=== PATIENT | male | born 1965 | race Caucasian/White ===

== ENCOUNTER → 2023-01-26 13:07 | Outpatient (BNVA) | payer OTHER, SELFPAY | PROVIDERS: PCP Physician Assistant; Visit Provider Urology | DX: R97.20 Elevated prostate specific antigen [PSA] (principal); F17.200 Nicotine dependence, unspecified, uncomplicated | CPT/HCPCS: 51798 ==

== ENCOUNTER 2023-08-04 08:40 | Emergency (ER) | payer OTHER, SELFPAY ==
--- NOTE | ~2023-08-04 | XR_ITS ---
EXAMINATION: XR LUMBOSACRAL SPINE CLINICAL INFORMATION: Low back pain COMPARISON: None available. TECHNIQUE: Three views of the lumbosacral spine. FINDINGS: There is minor spondylitic change in the mid lumbar spine but no acute fracture or destructive process. Alignment is preserved. The SI joints appear symmetric. XR/XR lumbar spine 2-3V IMPRESSION: Degenerative change noted but no acute findings.
[2023-08-04 08:44] VITALS: BP 143/101; PULSE 90; RESP 18; TEMP 36.6; O2SAT 98; BMI 26.5
--- NOTE | 2023-08-04 08:55 | PC.NURSE ---
patient a&ox3, pt c/o 8-10 on pain depending on the moment, pt states if he is just sitting relaxing its low on the pain scale but any movement it increases, pt denies injury but states he recently was shoveling concrete and also doing fall cleanup at his home. Pt awaiting provider will continue to monitor.
--- NOTE | 2023-08-04 09:04 | ED_ITS ---
HPI - Back Pain/Injury General Chief Complaint: Back Pain/Injury Stated Complaint: Lower Back Pain S/P Injury 1 Wk Ago Time Seen by Provider: 08/04/23 09:02 Source: patient and family () Mode of arrival: ambulatory Limitations: no limitations History of Present Illness HPI Narrative: Patient is a 50-year-old male presenting to the emergency department with midline lower back pain for the past week. States that he has been doing a good deal of yard work outdoors as well as shoveling concrete. Denies recent falls or other trauma. States pain radiates down both legs. Denies fevers, saddle anesthesia, bowel or bladder incontinence. Denies dysuria, frequency, any other urinary symptoms. Has used Aleve intermittently with little relief. MD elicited complaint: back pain Onset (ago): week(s) Timing: constant Severity: severe Quality: aching Location: lumbar spine and sacrum Radiation: left upper leg and right upper leg Exacerbating factors: movement Relieving factors: sitting upright Context: while lifting and turning/twisting Associated symptoms: denies other symptoms Treatments prior to arrival: NSAIDS Work related injury: No Related Data Home Medications Medication Instructions Recorded Confirmed bupropion HCl 300 mg 24 hr tablet, 300 mg PO DAILY 01/26/23 01/26/23 extended release Previous Rx's Medication Instructions Recorded cyclobenzaprine 5 mg tablet 5 mg PO TID PRN muscle spasm #12 08/04/23 tabs lidocaine 5 % topical patch 1 patch topical DAILY #15 ea 08/04/23 Allergies Allergy/AdvReac Type Severity Reaction Status Date / Time No Known Allergies Allergy Verified 01/26/23 13:10 Review of Systems Review of Systems: As per HPI. 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 Blood pressure elevated. Heart rate normal. Respiratory rate normal. Temperature normal. Oxygen saturation normal. Const: General: cooperative, healthy appearing and no acute distress Orientation/consciousness: oriented to person, oriented to place, oriented to time and patient oriented x3 Limitations: no limitations HEENT: Head: Yes normocephalic and Yes atraumatic Ears: external ears normal General nose exam: Normal external nose present Face and sinus: Yes face symmetric Mouth: oropharynx normal and moist mucous membranes Throat: Yes uvula midline Eyes: Pupils: Equal, round and reactive pupils present Neck: Neck: Yes normal visual inspection and Yes supple Resp: Effort & Inspection: normal respiratory effort and able to speak in complete sentences Auscultation: clear to auscultation bilaterally Cardio: Rate: regular rate Rhythm: regular rhythm Heart sounds: S1 charbel l heart sound present and S2 normal heart sound present GI: Palpation (GI): Soft to palpation and nontender Auscultation: normoactive bowel sounds : General: Yes no CVA tenderness Back/Spine/Pelvis: Back: no CVA tenderness Cervical Spine: normal cervical lordosis, cervical ROM normal, No Cervical spine tenderness and No step off deformity Thoracic/Lumbar Spine: thoracic and lumbar spine normal to inspection, No Thoracic/lumbar spine scar(s), thoraco-lumbar ROM normal, pain with thoraco-lumbar ROM, lumbar spinal tenderness at L5 and straight leg raise positive bilateral Sacrum: tenderness (S1) midline Skin: General skin exam: elasticity normal and turgor normal Neuro: General: oriented to person, oriented to place, oriented to time, patient oriented x3, moves all extremities, no focal motor deficits and CN's II- XI intact bilaterally Cranial nerves: Yes Equal, round and reactive pupils present Cognition (Neuro): normal cognition Extrem: General: Yes full ROM, Yes no pedal edema and Yes no calf tenderness Psych: Mental Status: mental status grossly normal Affect: normal affect Thought process: Normal thought process present Medical Decision Making Medical Decision Making MDM Narrative: Patient is a 50-year-old male presenting to the emergency department with midline lower back pain for the past week. On exam patient is awake, A+Ox3, BP elevated, VS otherwise WNL, afebrile, normal neurological exam without focal deficits, physical exam findings as above. Given reported symptoms and physical exam findings, initial differential includes lumbar strain, lumbar radiculopathy, disc herniation, spondylolithesis, osteoarthritis. X-ray notable for degenerative changes, no evidence of fracture or spondylolisthesis. My interpretation is in agreement with the radiologist's interpretation. Will discharge patient home with prescriptions for cyclobenzaprine and lidocaine patches, advised patient to continue using Aleve consistently, apply ice for 10- 15 minutes at a time several times daily. Instructed patient follow-up with PCP. Return precautions discussed at bedside. Patient verbalized understanding of and agreement with plan. Differential Diagnosis Differential Diagnoses: The differential diagnosis associated with the p resentation includes As per MDM. Independent Interpretation I performed an independent interpretation of an: Plain X-Ray Interpretation: Degenerative changes of lumbar spine Radiology Impression Discussion of test interpretation with radiology: I have reviewed the radiologist's reading. Radiologist Impression: XR/XR lumbar spine 2-3V IMPRESSION: Degenerative change noted but no acute findings. Independent Historian Clinical information obtained from an independent historian. History obtained from or confirmed by: Spouse External Record Review External record reviewed: Inpatient record, Office record and Outpatient record Prescription Management I considered prescription management with: Pain Medication and Other Discharge Plan Discharge Clinical Impression: Lumbar strain Qualifiers: Encounter type: initial encounter Qualified Code(s): S39.012A - Strain of mus mirian, fascia and tendon of lower back, initial encounter Patient Disposition: Home, Self-Care Instructions: Low Back Strain (ED), Acute Low Back Pain (ED) Additional Instructions: You were evaluated in the emergency department today for back pain. Your evaluation did not show signs of medical conditions requiring emergent intervention at this time. We recommended that you use ibuprofen or Tylenol per package directions every 6 hours as needed for pain. If necessary, you can alternate these medications so that you take one medication every 3 hours. For instance, at noon take ibuprofen, then at 3:00 p.m. take Tylenol, then at 6:00 p.m. take ibuprofen. You have been prescribed a muscle relaxer which you may take every 8 hours as needed for spasms. You have been prescribed 5% topical lidocaine patches which you can wear for up to 12 hours in a 24 hour period. Do not apply heat directly over the patches. Please schedule an appointment for follow-up with your primary care physician this week for further evaluation of your symptoms. Return to the emergency department if you experience worsening back pain, difficulty walking, fevers, numbness, tingling, incontinence, groin numbness or tingling, or any other concerning symptoms. Prescriptions: New cyclobenzaprine 5 mg tablet 5 mg PO TID PRN (Reason: muscle spasm) Qty: 12 0RF lidocaine 5 % adhesive patch,medicated 1 patch topical DAILY Qty: 15 0RF Rx Instructions: leave on most painful area for up to 12 hrs No Action bupropion HCl 300 mg tablet extended release 24 hr 300 mg PO DAILY Stand Alone Forms: Work/School Release
--- NOTE | 2023-08-04 10:11 | PC.NURSE ---
pt awaiting xray results, pt aware, will continue to monitor
== END 2023-08-04 10:34 | disposition home or self-care (01) ==
PROVIDERS: Emergency Provider Emergency Medicine; PCP Physician Assistant
DX: S39.012A Strain of muscle, fascia and tendon of lower back, initial encounter (principal); X50.9XXA Other and unspecified overexertion or strenuous movements or postures, initial encounter; Y93.H1 Activity, digging, shoveling and raking; Y92.017 Garden or yard in single-family (private) house as the place of occurrence of the external cause; Y99.9 Unspecified external cause status
CPT/HCPCS: 72100; 99283

== ENCOUNTER 2023-09-07 07:00 | Outpatient (RCR) | payer OTHER, SELFPAY | END 2024-01-18 07:55 | disposition home or self-care (01) | LOC: HO.PT 07:00 | PROVIDERS: PCP Physician Assistant; Visit Provider Family Medicine | DX: S39.012D Strain of muscle, fascia and tendon of lower back, subsequent encounter (principal) | CPT/HCPCS: 97110; 97140; 97161 ==

== ENCOUNTER 2023-09-23 13:24 | Emergency (ER) | payer OTHER, SELFPAY ==
--- NOTE | 2023-09-23 14:12 | ED.CHESTPAIN ---
HPI - Chest Pain General Chief Complaint: Abdominal Pain Stated Complaint: Pain Under R Side Ribs No Injury Time Seen by Provider: 09/24/23 01:19 Source: patient, RN notes reviewed and old records reviewed Mode of arrival: ambulatory Limitations: no limitations History of Present Illness HPI narrative: 58-year-old male presents for evaluation of abdominal pain. Patient reports that just prior to arrival he had a sudden onset of severe right upper abdominal pain He had some associated nausea Reports that he had not used anything within about 4 hours prior to symptom onset Patient states that he has remote history of severe alcohol abuse He does admit to drinking heavily about 10 nips a day up until about 2 weeks ago He has not had a drink since Patient states that his primary doctor has told him in the past that he has elevated liver enzymes Denies any fevers, chills Related Data Home Medications Medication Instructions Recorded Confirmed bupropion HCl 300 mg 24 hr tablet, 300 mg PO DAILY 01/26/23 01/26/23 extended release Previous Rx's Medication Instructions Recorded cyclobenzaprine 5 mg tablet 5 mg PO TID PRN muscle spasm #12 08/04/23 tabs lidocaine 5 % topical patch 1 patch topical DAILY #15 ea 08/04/23 Allergies Allergy/AdvReac Type Severity Reaction Status Date / Time No Known Allergies Allergy Verified 01/26/23 13:10 Review of Systems Constitutional: Constitutional: Denies chills and Denies fever(s) Cardiovascular: Cardiovascular: Denies chest pain and Denies dyspnea Respiratory: Respiratory: Denies cough and Denies dyspnea Gastrointestinal: Gastrointestinal: Reports abdominal pain, Reports nausea and Denies vomiting Musculoskeletal: Musculoskeletal: Denies back pain PMFSH Past Medical History Onset Date is defined in the Problem List Problems that require an onset date and time if occurred within 24 hrs of arrival to the ED Aortic Dissection and Rupture; Neurologic impairment; Cardiopulmonary Arrest; Endotracheal Intubation; Insertion or Replacement of Mechanical Circulatory Assist Device Medical History 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 Prediabetes Raised prostate specific antigen Tobacco user Social History Social History Advance Directives: No Advance Directives Information Provided: Yes Physical Exam Vital Signs: Vital Signs: Last Vital Signs Temp 97.4 F 09/23/23 14:13 Pulse 90 09/23/23 14:13 Resp 18 09/23/23 14:13 BP 136/86 09/23/23 14:13 Pulse Ox 97 09/23/23 14:13 O2 Del Method Room Air 09/23/23 14:13 BMI result Body Mass Index 26.5 Const: General: healthy appearing, comfortable, no acute distress, alert and awake Nutritional Appearance: well nourished Orientation/consciousness: patient oriented x3 HEENT: Head: Yes normocephalic and Yes atraumatic Eyes: Eyelids: Yes eyelids normal Conjunctivae: conjunctivae normal Sclerae: sclerae normal Corneas: corneas normal Pupils: Equal, round and reactive pupils present EOM: EOMs intact bilaterally Neck: Neck: Yes full ROM Chest: Other: No chest wall tenderness or crepitus Resp: Effort & Inspection: normal respiratory effort, able to speak in complete sentences and not labored GI: Inspection: No distended Palpation (GI): Soft to palpation, not firm, Tenderness to palpation present (GI) in the RUQ; not in the RLQ, no guarding and not rigid Skin: General skin exam: elasticity normal Neuro: General: patient oriented x3 Cranial nerves: Yes Equal, round and reactive pupils present and Yes Bilaterally intact EOM present Cognition (Neuro): normal cognition Course Course Course Narrative: RME: 58 yo w/ PMHx nicotine dependence presenting to the ED c/o right lower rib /RUQ abd pain x3hrs. pain worse w/breathing. denies SOB/N/V R lower rib ttp, +RUQ/epigastric ttp EKG, Labs, UA, US, XR ordered Full HPI, ROS and PE to be performed by primary ED provider. Medical Decision Making Medical Decision Making [facility] Narrative: 58-year-old male presents for evaluation abdominal pain. Unfortunately, the patient has been the ER for approximately 12 hours prior to my evaluation. He reports during my evaluation his symptoms have almost completely resolved. He had labs that were significant for a mild transaminitis preg normal bilirubin. He had an ultrasound of the gallbladder which not show any abnormalities. X-ray of the ribs with PA chest that did not show any concerning abnormalities. The patient also had a UA heart of 86 beats per minute and no ischemic changes. Patient reports that he has a physical scheduled for September 29 at his PCP office. Given the patient reports a history of previous elevated liver enzymes, even though we do not have previous for comparison I feel it is reasonable to discharge the patient at this time. I did discuss possible CT imaging with the patient, however the patient's common bile duct is not distended slightly low suspicion for right distal biliary obstruction. Discussed return precautions with the patient Differential Diagnosis Differential Diagnoses: The differential diagnosis associated with the presentation includes Biliary colic Cholelithiasis Acute cholecystitis Rib contusion Costochondritis Gastroenteritis Pancreatitis Lab Data MDM Lab Attestation statement: I reviewed the patient's lab results. No leukocytosis, no significant anemia. Patient's platelet count is just below normal at 156 K. no significant electrolyte abnormalities. The patient has a mild transaminitis, unclear baseline 09/23/23 14:39 09/23/23 14:39 Labs: Lab Results 09/23/23 Range/Units 14:39 WBC 9.3 (4.8-10.8) X10*3/uL RBC 5.34 (4.60-5.80) X10*6/uL Hgb 16.8 (14.0-18.0) g/dl Hct 48.9 (42.0-52.0) % MCV 91.6 (80.0-98.0) fL MCH 31.5 (27.0-33.0) pg MCHC 34.4 (31.0-36.0) g/dl RDW 13.3 (11.0-16.0) % Plt Count 156 L (160-400) X10*3/uL MPV 10.9 (9.4-12.4) fL Immature Gran % (Auto) 0.3 (0.0-0.4) % Neut % (Auto) 75.4 H (45-73) % Lymph % (Auto) 15.1 L (20-40) % Williams % (Auto) 8.0 (2-11) % Eos % (Auto) 0.9 (0-4) % Baso % (Auto) 0.3 (0-2) % Lymph # (Auto) 1.4 (1.2-4.9) X10*3/uL Williams # (Auto) 0.7 (0.1-1.2) X10*3/uL Eos # (Auto) 0.1 (0.0-0.4) X10*3/uL Baso # (Auto) 0.0 (0.0-0.2) X10*3/uL Abs Immat Gran (auto) 0.03 (0.00-0.03) X10*3/uL Absolute Neuts (auto) 7.0 (2.0-8.3) x10*3/uL Absolute Nucleated RBC 0.000 (0.0-0.012) X10*3/uL Nucleated RBC % (auto) 0.0 (0.0-0.2) /100WBC PT 12.3 (11.1-13.3) SEC INR 1.0 (0.9-1.1) Sodium 135 (135-145) mmol/L Potassium 4.5 (3.3-5.1) mmol/L Chloride 101 (96-108) mmol/L Carbon Dioxide 26 (22-29) mmol/L Anion Gap 13 (12-20) BUN 10 (9-16) mg/dL Creatinine 0.99 (0.5-1.4) mg/dL Estim Creat Clear Calc 83.9 Estimated GFR > 60 Random Glucose 113 (60-115) mg/dL Calcium 10.3 H (8.4-10.2) mg/dL Total Bilirubin 1.0 (0.0-1.0) mg/dL Direct Bilirubin 0.6 H (0.0-0.5) mg/dL AST 201 H (5-37) U/L ALT 154 H (0-40) U/L Alkaline Phosphatase 133 H (39-117) U/L Troponin I High Sens < 2.7 (<3.5-35.0) ng/L Total Protein 8.9 H (6.5-8.0) g/dL Albumin 4.4 (3.5-5.0) g/dL Lipase 50 (8-78) U/L Independent Interpretation I performed an independent interpretation of an: EKG (See above) Tests considered The following testing was considered but not selected: Considered CT scan of the abdomen pelvis Discharge Plan Discharge Clinical Impression: Abdominal pain, Transaminitis Patient Disposition: Home, Self-Care Instructions: Abdominal Pain (ED) Additional Instructions: Your workup in the ER today was reassuring. However your liver enzymes were slightly elevated I recommend you have repeat liver enzymes within the next 1-2 weeks Return to the ER if your pain worsens or if you have intractable vomiting You should also return to the ER if you develop a fever Avoid excessive alcohol consumption as well as Tylenol consumption as these are bad for your liver Prescriptions: No Action cyclobenzaprine 5 mg tablet 5 mg PO TID PRN (Reason: muscle spasm) Qty: 12 0RF lidocaine 5 % adhesive patch,medicated 1 patch topical DAILY Qty: 15 0RF Rx Instructions: leave on most painful area for up to 12 hrs bupropion HCl 300 mg tablet extended release 24 hr 300 mg PO DAILY
[2023-09-23 14:13] VITALS: BP 136/86; PULSE 90; RESP 18; TEMP 36.3; O2SAT 97; BMI 26.5
[2023-09-24 02:06] VITALS: BP 137/88; PULSE 84; RESP 18; TEMP 36.7; O2SAT 98
== END 2023-09-24 02:15 | disposition home or self-care (01) ==
PROVIDERS: Emergency Provider Emergency Medicine; PCP Physician Assistant
DX: R10.11 Right upper quadrant pain (principal); R74.01 Elevation of levels of liver transaminase levels; F10.21 Alcohol dependence, in remission; R73.03 Prediabetes; F17.210 Nicotine dependence, cigarettes, uncomplicated; Z79.899 Other long term (current) drug therapy
CPT/HCPCS: 36415; 71101; 76705; 80048; 80076; 83690; 84484; 85025; 85610; 86704; 86706; 86709; 86803; 87340; 93005; 99284; 99285

== ENCOUNTER → 2023-09-23 14:13 | Outpatient (BNV) | payer OTHER, SELFPAY | PROVIDERS: PCP Physician Assistant; Visit Provider Internal Medicine Cardiovascular Disease | DX: R10.9 Unspecified abdominal pain (principal) | CPT/HCPCS: 93010 ==

== ENCOUNTER 2024-05-04 08:46 | Emergency (ER) | payer OTHER, SELFPAY ==
--- NOTE | ~2024-05-04 | CT_ITS ---
EXAMINATION: CT ABDOMEN AND PELVIS WITH CONTRAST CLINICAL INFORMATION: Bilateral lower quadrant pain. COMPARISON: Right upper quadrant ultrasound 09/23/2023 TECHNIQUE: Multidetector volumetric images were obtained from the superior aspect of the liver through the pubic symphysis following administration 85 mL of Omnipaque 350 intravenous contrast. Sagittal and coronal reformatted images were obtained on the technologist's workstation. Oral contrast: No This CT examination was performed using dose optimization techniques as appropriate, variously including the following: *Automated exposure control *Adjustment of mA and/or kV according to patient size (this includes techniques or standardized protocols for targeted exams where dose is matched to indication/reason for exam; i.e. extremities or head) *Use of iterative reconstruction technique DLP: 432 mGy-cm FINDINGS: LUNG BASES: Juxtaphrenic cystic lesion measuring 1.9 x 1.2 x 2.2 cm is partially imaged. LIVER, GALLBLADDER, AND BILIARY TREE: The liver is decreased in attenuation. No focal hepatic lesion or biliary ductal dilatation is present. Gallstone. PANCREAS: No ductal dilatation. SPLEEN: Not enlarged. Splenule. ADRENAL GLANDS: No adrenal mass. KIDNEYS AND URETERS: The kidneys are symmetric in size and enhancement. No hydronephrosis, hydroureter, or calculi seen. No perinephric stranding. BLADDER: Underdistended. GASTROINTESTINAL TRACT: Possible gastric wall thickening. Diverticular disease of the sigmoid colon. No small bowel obstruction. ABDOMINAL WALL: No significant hernia is appreciated. LYMPH NODES: Few subcentimeter periportal/alfred hepatis lymph nodes. VASCULAR: Normal caliber abdominal aorta. PELVIC VISCERA: Mild enlargement of the prostate gland. OSSEOUS STRUCTURES: Advanced degenerative changes of the right hip. Possible avascular necrosis of the left femoral head. CT/CT abdomen pelvis w IV con IMPRESSION: Possible gastric wall thickening. Consider correlation with direct visualization. Juxtaphrenic cystic lesion measuring 1.9 x 1.2 x 2.2 cm is partially imaged. Consider dedicated chest CT. Hepatic steatosis. Cholelithiasis.
[2024-05-04 08:57] VITALS: BP 126/85; PULSE 110; RESP 16; TEMP 36.8; O2SAT 98; BMI 22.9
[2024-05-04 09:18] LABS: MANUAL DIFF FLAG NO
--- NOTE | 2024-05-04 09:20 | ED_ITS ---
HPI - General Adult General Chief complaint: Nausea/Vomiting/Diarrhea Stated complaint: stomach pain x4days Time Seen by Provider: 05/04/24 09:19 Source: patient Mode of arrival: ambulatory Limitations: no limitations History of Present Illness ED Provider: esthela JOLLY narrative: Patient is a 59-year-old male presenting to the emergency department with complaint of nausea, vomiting and diarrhea since Thursday. States he is no longer actively vomiting or having diarrhea but is not attempting p.o. fluids because every time he tries this causes him to vomit. He reports sweats/chills. Reports bilateral lower abdominal pain. Denies any hematochezia or melena, hematemesis. Denies any previous abdominal surgeries. He is passing gas. Denies any known sick contacts. complaint: nausea, vomiting and diarrhea Onset (ago): day(s) Location: abdomen Severity: mild Quality: aching Associated symptoms: fever/chills and nausea/vomiting Treatments prior to arrival: none Related Data Home Medications ?Medication ?Instructions ?Recorded ?Confirmed bupropion HCl 300 mg 24 hr tablet, 300 mg PO DAILY 01/26/23 01/26/23 extended release Previous Rx's ?Medication ?Instructions ?Recorded cyclobenzaprine 5 mg tablet 5 mg PO TID PRN muscle spasm #12 08/04/23 tabs lidocaine 5 % topical patch 1 patch topical DAILY #15 ea 08/04/23 ondansetron 4 mg disintegrating 4 mg PO Q8H PRN nausea and 05/04/24 tablet vomiting #9 tabs Allergies Allergy/AdvReac Type Severity Reaction Status Date / Time No Known Allergies Allergy Verified 05/04/24 09:02 Review of Systems 2 Review of Systems: As per HPI Yes all other systems are reviewed and are negative Constitutional: Constitutional: Reports as per HPI PMFSH Past Medical History Medical History 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 Blood pressure normal. Heart rate mildly tachycardic. Respiratory rate normal. Temperature normal. Oxygen saturation normal. Const General: cooperative, healthy appearing and no acute distress Orientation/consciousness: oriented to person, oriented to place, oriented to time and patient oriented x3 Limitations: no limitations HENMT Head: Yes normocephalic and Yes atraumatic Ears: external ears normal General nose exam: Normal external nose present Face and sinus: Yes face symmetric Mouth: oropharynx normal and moist mucous membranes Throat: Yes uvula midline Eyes Pupils: Equal, round and reactive pupils present Neck Neck: Yes normal visual inspection and Yes supple Resp Effort & Inspection: normal respiratory effort and able to speak in complete sentences Auscultation: clear to auscultation bilaterally Cardio Rate: regular rate Rhythm: regular rhythm Heart sounds: S1 normal heart sound present and S2 normal heart sound present GI Palpation (GI): Soft to palpation and Tenderness to palpation present (GI) in the LLQ (mild) and in the RLQ (mild) Auscultation: normoactive bowel sounds General: Yes no CVA tenderness Back/Spine/Pelvis Back: no CVA tenderness Skin General skin exam: elasticity normal and turgor normal Neuro General: oriented to person, oriented to place, oriented to time, patient oriented x3, moves all extremities, no focal motor deficits and CN's II-XI intact bilaterally Cranial nerves: Yes Equal, round and reactive pupils present Cognition (Neuro): normal cognition Extrem General: Yes full ROM, Yes no pedal edema and Yes no calf tenderness Psych Mental Status: mental status grossly normal Affect: normal affect Thought process: Normal thought process present Medications Administered Discontinued Medications Generic Name Dose Route Start Last Admin Trade Name Freq PRN Reason Stop Dose Admin Sodium Chloride 1,000 mls @ 999 mls/hr 05/04/24 09:30 05/04/24 11:18 Ns IV 05/04/24 10:30 Infused .Q1H1M ZAIN Infusion Iohexol 85 ml 05/04/24 09:58 05/04/24 09:59 Iohexol 350 Mg/Ml 100 Ml Infus..Btl IV 05/04/24 09:59 85 ml ONCE ONE Administration Ondansetron HCl 4 mg 05/04/24 09:30 05/04/24 09:46 Ondansetron Hcl 4 Mg/2 Ml Vial IVPUSH 05/04/24 09:31 4 mg ONCE ONE Administration Medical Decision Making Medical Decision Making [facility] Narrative: Patient is a 59-year-old male presenting to the emergency department with complaint of nausea, vomiting and diarrhea since Thursday. On exam patient is awake, A+Ox3, VS WNL, afebrile, normal neurological exam without focal deficits, physical exam findings as above. Given reported symptoms and physical exam findings, initial differential includes gastroenteritis, gastritis, diverticulitis, UTI, renal/ureteral calculi. Labs notable for no evidence of SHIMA, chronically elevated LFTs, normal bili. CT notable for possible gastric wall thickening consistent with gastroenteritis. Incidental finding of cystic lesion, chest CT recommended. My interpretation is in agreement with the radiologist's interpretation. Patient updated on results and all questions answered. Advised patient to follow-up with PCP for further evaluation of cystic lesion/outpatient chest CT. Patient able to tolerate PO fluids after zofran given in the ED. Will send prescription for Zofran, advised patient to progress diet slowly from clear liquids to bland diet then back to normal diet as tolerated. Return precautions discussed at bedside. Patient verbalized understanding of and agreement with plan. Differential Diagnosis Differential Diagnoses: The differential diagnosis associated with the presentation includes As per [facility]. Admission/Observation Consideration of admission/observation: Escalation of care including admission/observation considered Patient would have been admitted to the hospital had their work up had any findings where hospital admission was appropriate and their clinical presentation warranted hospital admission. Lab Data [facility] Lab Attestation statement: I reviewed the patient's lab results. As per [facility] 05/04/24 09:13 05/04/24 09:13 Labs: Lab Results 05/04/24 05/04/24 Range/Units 09:13 10:39 WBC 6.6 (4.8-10.8) X10*3/uL RBC 5.11 (4.60-5.80) X10*6/uL Hgb 16.5 (14.0-18.0) g/dl Hct 46.6 (42.0-52.0) % MCV 91.2 (80.0-98.0) fL MCH 32.3 (27.0-33.0) pg MCHC 35.4 (31.0-36.0) g/dl RDW 13.6 (11.0-16.0) % Plt Count 126 L (160-400) X10*3/uL MPV 11.6 (9.4-12.4) fL Immature Gran % (Auto) 0.3 (0.0-0.4) % Neut % (Auto) 64.8 (45-73) % Lymph % (Auto) 19.9 L (20-40) % [place] % (Auto) 12.9 H (2-11) % Eos % (Auto) 1.8 (0-4) % Baso % (Auto) 0.3 (0-2) % Lymph # (Auto) 1.3 (1.2-4.9) X10*3/uL [place] # (Auto) 0.9 (0.1-1.2) X10*3/uL Eos # (Auto) 0.1 (0.0-0.4) X10*3/uL Baso # (Auto) 0.0 (0.0-0.2) X10*3/uL Abs Immat Gran (auto) 0.02 (0.00-0.03) X10*3/uL Absolute Neuts (auto) 4.3 (2.0-8.3) x10*3/uL Absolute Nucleated RBC 0.000 (0.0-0.012) X10*3/uL Nucleated RBC % (auto) 0.0 (0.0-0.2) /100WBC Sodium 133 L (135-145) mmol/L Potassium 4.5 (3.3-5.1) mmol/L Chloride 100 (96-108) mmol/L Carbon Dioxide 23 (22-29) mmol/L Anion Gap 15 (12-20) BUN 13 (9-16) mg/dL Creatinine 1.05 (0.5-1.4) mg/dL Estim Creat Clear Calc 77.4 Estimated GFR > 60 Random Glucose 108 (60-115) mg/dL Calcium 9.9 (8.4-10.2) mg/dL Total Bilirubin 1.0 (0.0-1.0) mg/dL Direct Bilirubin 0.3 (0.0-0.5) mg/dL AST 118 H (5-37) U/L ALT 107 H (0-40) U/L Alkaline Phosphatase 114 (39-117) U/L Total Protein 8.8 H (6.5-8.0) g/dL Albumin 4.1 (3.5-5.0) g/dL Lipase 40 (8-78) U/L Urine Color Yellow Urine Appearance Clear Urine pH 7.0 (5.0-9.0) Ur Specific [place] >= 1.030 H (1.005-1.025) Urine Protein Negative (Neg-Trace) mg/dL Urine Glucose (UA) Negative (Negative) mg/dL Urine Ketones Negative (Negative) mg/dL Urine Blood Negative (Negative) Urine Nitrite Negative (Negative) Ur Leukocyte Esterase Negative (Negative) COVID-19 ([facility]RITA) Negative (Negative) COVID-19 Clin Com See Note Independent Interpretation I performed an independent interpretation of an: CT Scan Interpretation: CT notable for possible gastric wall thickening consistent with gastroenteritis. Incidental finding of cystic lesion, chest CT recommended. Radiology Impression Discussion of test interpretation with radiology: I have reviewed the radiologist's reading. Radiologist Impression: CT/CT abdomen pelvis w IV con IMPRESSION: Possible gastric wall thickening. Consider correlation with direct visualization. Juxtaphrenic cystic lesion measuring 1.9 x 1.2 x 2.2 cm is partially imaged. Consider dedicated chest CT. Hepatic steatosis. Cholelithiasis. External Record Review External record reviewed: Inpatient record, Office record and Outpatient record Prescription Management I considered prescription management with: Other Discharge Plan Discharge Clinical Impression: Gastroenteritis Patient Disposition: Home, Self-Care Instructions: Gastroenteritis (DC), Acute Nausea and Vomiting (ED), Acute Diarrhea (ED) Additional Instructions: You have been evaluated in the emergency department today for nausea, vomiting, and diarrhea. Your evaluation suggests that your symptoms are most likely due to a viral illness which will improve on it's own with rest and fluids. Remember to drink plenty of fluids at home. You are being prescribed ondansetron which you can use as per the prescription instructions for nausea. Please follow up with your primary care provider within two days. Your CT scan noted a cystic lesion and a chest CT is recommended. Follow up with your PCP to schedule this outpatient. Return to the emergency department if you experience worsening or uncontrolled pain, inability to tolerate fluids by mouth, difficulty breathing, fevers 100.4? F or greater, recurrent vomiting, or any other concerning symptoms. Prescriptions: New ondansetron 4 mg tablet,disintegrating 4 mg PO Q8H PRN (Reason: nausea and vomiting) Qty: 9 0RF No Action cyclobenzaprine 5 mg tablet 5 mg PO TID PRN (Reason: muscle spasm) Qty: 12 0RF lidocaine 5 % adhesive patch,medicated 1 patch topical DAILY Qty: 15 0RF Rx Instructions: leave on most painful area for up to 12 hrs bupropion HCl 300 mg tablet extended release 24 hr 300 mg PO DAILY Stand Alone Forms: Work/School Release Print Language: Romanian
[2024-05-04 09:27] LABS: Basophils Percent Auto 0.3 % (0-2); Eosinophils Absolute Auto 0.1 X10*3/uL (0.0-0.4); Eosinophils Percent Auto 1.8 % (0-4); Hematocrit 46.6 % (42.0-52.0); Hemoglobin 16.5 g/dl (14.0-18.0); Imm Gran Abs Auto 0.02 X10*3/uL (0.00-0.03); Imm Gran Pct Auto 0.3 % (0.0-0.4); Lymphocytes Absolute Auto 1.3 X10*3/uL (1.2-4.9); Lymphocytes Percent Auto 19.9 % (20-40); Mean Corpuscular HGB Conc 35.4 g/dl (31.0-36.0); Mean Corpuscular Hemoglobin 32.3 pg (27.0-33.0); Mean Corpuscular Volume 91.2 fL (80.0-98.0); Mean Platelet Volume 11.6 fL (9.4-12.4); Monocytes Absolute Auto 0.9 X10*3/uL (0.1-1.2); Monocytes Percent Auto 12.9 % (2-11); Neutrophils Absolute Auto 4.3 x10*3/uL (2.0-8.3); Neutrophils Percent Auto 64.8 % (45-73); Platelet Count 126 X10*3/uL (160-400); Red Blood Count 5.11 X10*6/uL (4.60-5.80); Red Cell Distribution Width 13.6 % (11.0-16.0); White Blood Count 6.6 X10*3/uL (4.8-10.8)
[2024-05-04 09:35] LABS: Alanine Aminotransferase 107 U/L (0-40); Albumin Level 4.1 g/dL (3.5-5.0); Alkaline Phosphatase 114 U/L (39-117); Anion Gap 15 (12-20); Aspartate Amino Transferase 118 U/L (5-37); Bilirubin Direct 0.3 mg/dL (0.0-0.5); Blood Urea Nitrogen 13 mg/dL (9-16); Calcium 9.9 mg/dL (8.4-10.2); Carbon Dioxide 23 mmol/L (22-29); Chloride 100 mmol/L (96-108); Creatinine Clr Calc Pharmacy 77.4; Estimated Glomerular Filt Rate > 60; Glucose Random 108 mg/dL (60-115); Lipase 40 U/L (8-78); Potassium 4.5 mmol/L (3.3-5.1); Sodium 133 mmol/L (135-145); Total Protein 8.8 g/dL (6.5-8.0)
[2024-05-04 09:38] LABS: COVID-19 Test Negative (Negative); IDNOW Serial# 08D9AD1C
[2024-05-04] MEDS: 0.9 % Sodium Chloride 1,000 ML 999 ML IV (09:46)
[2024-05-04] MEDS: ondansetron HCL 4 MG/2 ML VIAL IVPUSH (09:46)
[2024-05-04] MEDS: iohexoL 350 MG/ML 100 ML INFUS..BTL 85 ML IV (09:59)
[2024-05-04 10:45] LABS: Appearance Urine Clear; Color Urine Yellow; Glucose Urine UA Negative (Negative); Leukocyte Esterase Urine Negative (Negative); Nitrite Urine Negative (Negative); Specific Gravity - Urine >= 1.030 (1.005-1.025); Urine Blood Negative (Negative); Urine Ketones Negative (Negative); Urine Protein Negative (Neg-Trace)
--- NOTE | 2024-05-04 11:21 | PC.NURSE ---
patient provided with water for PO challenge, endorsing some relief but still having some discomfort in bilateral lower quadrants.
[2024-05-04 11:41] VITALS: BP 155/88; PULSE 72; RESP 16; TEMP 37.1; O2SAT 98
== END 2024-05-04 11:46 | disposition home or self-care (01) ==
PROVIDERS: Emergency Provider Emergency Medicine; PCP Physician Assistant
DX: K52.9 Noninfective gastroenteritis and colitis, unspecified (principal); R11.2 Nausea with vomiting, unspecified; R50.9 Fever, unspecified; Z11.52 Encounter for screening for COVID-19; Z79.899 Other long term (current) drug therapy
CPT/HCPCS: 74177; 80048; 80076; 81003; 83690; 85025; 87635; 99284; J2405; Q9967

== ENCOUNTER 2024-06-14 11:19 | Outpatient (REF) | payer OTHER, SELFPAY ==
--- NOTE | ~2024-06-14 | CT_ITS ---
EXAMINATION: CT CHEST WITH CONTRAST CLINICAL INFORMATION: Lung mass. COMPARISON: No priors. Correlated to CT abdomen dated May 04, 2024. TECHNIQUE: Multidetector volumetric CT imaging of the chest was obtained after the administration of 65 mL of Omnipaque 350 intravenous contrast without reported immediate adverse reactions. Axial MIP volume rendering provided. Sagittal and coronal reformatted images were obtained. This CT examination was performed using dose optimization techniques as appropriate, variously including the following: *Automated exposure control *Adjustment of mA and/or kV according to patient size (this includes techniques or standardized protocols for targeted exams where dose is matched to indication/reason for exam; i.e. extremities or head) *Use of iterative reconstruction technique DLP: 228 mGy-cm FINDINGS: Submitted for interpretation on August 05, 2024. LUNGS: Centrilobular and paraseptal emphysematous changes, both upper lobes. Linear attenuation in the lingula and right middle lobe. No gross consolidation. 2 mm calcification in the left major fissure. No gross pulmonary nodules or masses. No bronchiectasis. No honeycombing. MEDIASTINUM: Nonspecific subcentimeter lymph nodes, the largest in the right pretracheal measures 7 mm. No aneurysm or dissection, thoracic aorta. Mixed plaques throughout the thoracic aorta wall and its main branches. No pericardial effusion. Calcified plaques in the coronary arteries.. PLEURA: No pleural effusion. No pneumothorax. AXILLA: No lymphadenopathy. UPPER ABDOMEN: Probable cholelithiasis. Decreased enhancement of the liver. Small accessory spleen in the splenic hilum. Calcified plaques in the origin of the left main renal artery and the abdominal aorta wall. OSSEOUS STRUCTURES: Multilevel spondylosis without acute fracture or listhesis in the axial skeleton. No dominant nodules in the included thyroid gland. CT/CT chest w IV con IMPRESSION: No mass or pulmonary nodules. Fleischner guidelines were followed. Electronically signed by: Perry Padilla MD 08/05/2024 01:03 PM [facility]
[2024-06-14] MEDS: iohexoL 350 MG/ML 100 ML INFUS..BTL IV (11:59)
[2024-06-15 09:42] LABS: Creatinine POC 0.9 mg/dL (0.5-1.4); GFR POC > 60
== END 2024-06-14 11:20 | disposition home or self-care (01) ==
LOC: HO.CT 11:19
PROVIDERS: PCP Family Medicine; Visit Provider Family Medicine
DX: R91.8 Other nonspecific abnormal finding of lung field (principal)
CPT/HCPCS: 71260; 82565; Q9967

== ENCOUNTER → 2024-06-14 11:21 | Outpatient (BNV) | payer OTHER, SELFPAY | PROVIDERS: PCP Family Medicine; Visit Provider Radiology Diagnostic Radiology | DX: R91.8 Other nonspecific abnormal finding of lung field (principal) | CPT/HCPCS: 71260 ==